=== PATIENT | female | born 1955 ===

== ENCOUNTER 2017-07-07 07:43 | Day surgery (SDC) | payer OTHER ==
[2017-07-06 12:10] VITALS: BMI 30.9
[2017-07-07 08:15] VITALS: TEMP 98.4
[2017-07-07] MEDS ORDERED: Lactated Ringer's 500 ML IV ONE ×2 (08:20)
[2017-07-07] MEDS ORDERED: Propofol 10 mg/ml Inj (20 ML) ONE (08:56)
--- NOTE | 2017-07-07 08:56 | CP.SDSHP ---
Same Day Surgery H & P - History Proposed Procedure: EGD Pre-Op Diagnosis: SEE NOTES - Previous Medical/Surgical History Cardiac: Hypertension Endocrine/Metabolic: Diabetes, Other Misc: Other Pain: 4.Moderate Pain - Allergies Allergies: Allergies No Known Allergies Allergy (Verified 07/06/17 12:10) - Physical Exam General Appearance: N Vital Signs: Vital Signs 07/07/17 08:05 Temperature 98.4 F Pulse Rate 67 Respiratory 19 Rate Blood Pressure 155/80 H O2 Sat by Pulse 99 Oximetry Mental Status: Alert & Oriented x3 Neuro: WNL Heart: Other Lungs: WNL GI: Other - {Optional Preform as Required} Breast: WNL Abdomen: Other Rectal: Other Integument: WNL : WNL Ortho: Other ENT: WNL - Impression Pt. Evaluated Today:Candidate for Anesthesia & Procedure: Yes - Date & Time Time: 08:56 Short Stay Discharge - Short Stay Discharge Admitting Diagnosis/Reason for Visit: FUNCTIONAL DYSPEPSIA Disposition: HOME/ ROUTINE
[2017-07-07] MEDS ORDERED: Belladonna-Phenobarbital PO STA (08:58)
[2017-07-07] MEDS ORDERED: Sucralfate 1 gm/10 ml Oral Susp UD PO ONE (09:40)
[2017-07-07 10:24] VITALS: BP 141/68; PULSE 56; RESP 14; O2SAT 97
== END 2017-07-07 10:25 | disposition home or self-care (01) ==
LOC: C.ENDO 07:43
PROVIDERS: ATTEND Specialist
DX: K29.70 Gastritis, unspecified, without bleeding (principal); K20.8 Other esophagitis; K46.9 Unspecified abdominal hernia without obstruction or gangrene; I10 Essential (primary) hypertension; E11.9 Type 2 diabetes mellitus without complications
CPT/HCPCS: 43239; 82948; 88305; J2704; J7120